=== PATIENT | male | born 1960 | race Caucasian/White ===

== ENCOUNTER 2016-11-02 14:14 | Inpatient (IN) | payer OTHER ==
[~2016-11-02] VITALS: Ht 182.9 cm; Wt 80.7 kg
[~2016-11-02 14:14] MED LIST: AMITRIPTYLINE H25 MG PO; NAPROXEN500 MG PO; SIMVASTATIN20 MG PO
[2016-11-02 15:00] LABS: ABSOLUTE BASOPHIL COUNT 0 /CUMM (0.0-0.2); ABSOLUTE EOSINOPHIL COUNT 0.4 /CUMM (0.0-0.7); ABSOLUTE LYMPH COUNT 1.6 /CUMM (1.2-3.4); ABSOLUTE MONOCYTE COUNT 0.2 /CUMM (0.10-0.60); BASOPHIL % 0.4 % (0.0-2.0); GRANULOCYTE % 81.9 % (42.2-75.2); HEMATOCRIT 40.9 % (42-52); MEAN CORPUSCULAR HGB 29.7 PG (27.0-31.0); MEAN CORPUSCULAR HGB CONC 32.9 G/DL (33.0-37.0); MEAN CORPUSCULAR VOLUME 90.3 FL (80.0-94.0); PLATELET COUNT 384 /CUMM (130-400); RBC DISTRIBUTION WIDTH 13.7 % (11.5-14.5); RED BLOOD CELL CT 4.53 /CUMM (4.70-6.10); WHITE BLOOD CELL COUNT 12.2 /CUMM (4.8-10.8)
[2016-11-02] MEDS ORDERED: HYDROXYCHLOROQ200 M2 PO (19:37)
[2016-11-02] MEDS ORDERED: OMEPRAZOLE20 M2 PO (19:37)
[2016-11-02] MEDS ORDERED: AMITRIPTYLINE H25 M2 PO (19:37)
[2016-11-02] MEDS ORDERED: ALLOPURINOL300 M1 PO (19:37)
[2016-11-02] MEDS ORDERED: DICLOFENAC SODI75 M2 PO (19:38)
[2016-11-02] MEDS ORDERED: CEPHALEXIN500 M3 PO (19:38)
[2016-11-02] MEDS ORDERED: TRAMADOL HCL50 M1 PO (19:38)
[2016-11-02] MEDS ORDERED: VIAGRA100 M1 PO (19:39)
[2016-11-02] MEDS ORDERED: ASPIRIN EC81 M1 PO (19:39)
[2016-11-02] MEDS ORDERED: SIMVASTATIN20 M2 PO (20:32)
--- NOTE | 2016-11-02 21:45 | ED HAND/WRIST INJURY COMPLAINT ---
History of Present Illness General Chief Complaint: General Adult Stated Complaint: SIB MD FOR STAPH INFECTION Source: patient Exam Limitations: no limitations Vital Signs & Intake/Output Vital Signs & Intake/Output Vital Signs Date Time Temp Pulse Resp B/P B/P Pulse O2 O2 Flow FiO2 Mean Ox Delivery Rate 11/02 2024 96.9 84 16 130/78 99 Room Air 11/02 1737 97.8 79 16 109/70 93 Room Air 11/02 1423 96.6 80 16 107/71 97 Room Air Allergies Coded Allergies: NO KNOWN ALLERGIES (10/17/13) Reconcile Medications Allopurinol 300 MG TABLET 1 TAB PO DAILY GOUT (Reported) Amitriptyline HCl 25 MG TABLET 1 TAB PO QPM YUSUF (Reported) Aspirin (Ecotrin*) 81 MG TABLET.DR 1 TAB PO DAILY HEART/BLOOD (Reported) Diclofenac Sodium 75 MG TABLET.DR 1 TAB PO BID INFLAMMATION (Reported) Hydroxychloroquine Sulfate 200 MG TABLET 1 TAB PO DAILY RA (Reported) Sildenafil Citrate (Viagra) 100 MG TABLET 1 TAB PO PRN ED (Reported) 1 hour before sexual activity Simvastatin (Simvastatin*) 20 MG TABLET 1 TAB PO DAILY CHOLESTEROL (Reported) Tramadol HCl 50 MG TABLET 1 TAB PO PRN PAIN (Reported) Triage Note: PT STATES HE HAS A STAPH INFECTION IN HIS RIGHT ARM. PT STATES SENT IN BY PCP FOR IV ABX. Triage Nurses Notes Reviewed? yes HPI: Mr. Jose is a 56 yo m w/ PMH of RA, gout and CAD w/ stent in place sending to the emergency department for right elbow pain and swelling. Patient states his pain began approximately one week ago. It continued to worsen and became inflamed with increased swelling. Patient went to his yard associate on October 31 and had an aspiration performed. After speaking with the patient's covering yard associate, the procedure note in the office stated that he drained the olecranon with aseptic technique. He was concerned about olecranon bursitis and sent the patient out on Keflex. The patient received a call today telling him to go to the emergency department as his culture from the elbow grew staph. Unable to confirm this as the patient's results was done with Envia Lá and office was closed. Patient denies fever, chills, chest pain, shortness of breath, no pain, nausea, vomiting or diarrhea. He endorses swelling to the right elbow as well as decreased range of motion secondary to pain. He also noticed some superficial redness that has been increasing over the past few days to the entire forearm. (ALBERTO SPARROW MD) Past History Travel History Traveled to [place] past 21 day No Medical History Any Pertinent Medical History? see below for history Neurological: NONE EENT: NONE Cardiovascular: STENT IN HEART Respiratory: NONE Renal: GOUT Musculoskeletal: rheumatoid arthritis Surgical History Surgical History: non-contributory Psychosocial History What is your primary language Bangladeshi Tobacco Use: Never used ETOH Use: occasional use Illicit Drug Use: marijuana Family History Hx Contributory? No (ALBERTO SPARROW MD) Review of Systems Review of Systems Constitutional: Reports: see HPI. EENTM: Reports: no symptoms. Respiratory: Reports: no symptoms. Cardiovascular: Reports: no symptoms. GI: Reports: no symptoms. Genitourinary: Reports: no symptoms. Musculoskeletal: Reports: joint pain, joint swelling. Skin: Reports: erythema. Neurological/Psychological: Reports: no symptoms. Hematologic/Endocrine: Reports: no symptoms. Immunologic/Allergic: Reports: no symptoms. All Other Systems: Reviewed and Negative (ALBERTO SPARROW MD) Physical Exam Physical Exam General Appearance: well developed/nourished, no apparent distress, alert, awake , comfortable Head: atraumatic, normal appearance Eyes: Bilateral: normal appearance, PERRL, EOMI. Ears, Nose, Throat: normal pharynx, normal ENT inspection, hearing grossly normal Neck: normal inspection, supple, full range of motion Cardiovascular/Respiratory: normal breath sounds, normal peripheral pulses, regular rate/rhythm Gastrointestinal: soft nontender Back: normal inspection, normal range of motion Shoulder Right: normal range of motion, normal inspection Elbow Right: swelling, joint effusion, limited range of motion, superficial erythema from wrist to slightly above the elbow. No induration to skin noted. Swelling to olecranon bursa. Hand Left: normal inspection, normal range of motion Hand Right: normal inspection, normal range of motion Skin: warm/dry, erythema to right forearm and right above the elbow. Outlined in skin marker Lymphatic: no anterior cervical wayne (ALBERTO SPARROW MD) Progress Differential Diagnosis: abscess, cellulitis, fracture, gout, septic arthritis, tenosynovitis, olecranon bursitis Plan of Care: Orders Procedure Date/time Status Regular Diet 11/03 B Active EXTREMETIES CULTURE 11/02 2217 Active Admit to inpatient 11/03 2127 Active Patient Data 11/03 2127 Active OXYGEN SETUP (GEN) 11/03 1935 Active Saline Lock 11/03 1935 Active Admit to inpatient 11/03 1935 Active Vital Signs 11/03 1935 Active Activity/Ambulation 11/03 1935 Active Code Status 11/03 1935 Active LACTIC ACID 11/02 190 Complete WESTERGREN SED RATE 11/02 190 Complete Intake & Output 11/02 190 Active HIGH SENSITIVITY CRP 11/02 1443 Complete C-REACTIVE PROTEIN 11/02 1443 Complete BLOOD CULTURE 11/02 142 Active COMPREHENSIVE METABOLIC PANEL 11/02 142 Complete CBC WITHOUT DIFFERENTIAL 11/02 142 Complete Current Medications Sig/Gregg Start time Last Medication Dose Stop Time Status Admin Oxycodone HCl 10 MG ONCE ONE 11/02 2229 UNVr (Roxicodone) 11/02 2230 Ceftriaxone Sodium 2,000 MG DAILY 11/02 1905 AC 11/02 (Rocephin) 194 Laboratory Tests 11/02/162205: Lactic Acid Cancelled 11/02/161910: Lactic Acid 1.1, ESR Westergren 92 H 11/02/16 1443: Anion Gap 13, Estimated GFR > 60, BUN/Creatinine Ratio 25.7 H, Glucose 90, Calcium 8.7, Total Bilirubin 0.5, AST 30, ALT 69, Alkaline Phosphatase 92, C- Reactive Prot, Quant > 9.0 H, C-React Prot High Sens > 15.0 H, Total Protein 6.2 L, Albumin 3.4 L, Globulin 2.8, Albumin/Globulin Ratio 1.2, CBC w Diff NO MAN DIFF REQ, RBC 4.53 L, MCV 90.3, MCH 29.7, RDW 13.7, MPV 8.0, Gran % 81.9 H , Lymphocytes % 13.0 L, Monocytes % 1.7, Eosinophils % 3.0, Basophils % 0.4, Absolute Granulocytes 10.0 H, Absolute Lymphocytes 1.6, Absolute Monocytes 0.2, Absolute Eosinophils 0.4, Absolute Basophils 0, PUBS MCHC 32.9 L Microbiology 11/02 2217 EXTREMITIE: Culture & Sensitivity - ORD 11/02 2217 EXTREMITIE: Gram Stain - ORD 11/03 2211 BODY FLUID: Body Fluid Culture - CAN Cancelled: Cancelled via OE: Error 11/02 2212 BODY FLUID: Gram Stain - CAN Cancelled: Cancelled via OE: Error 11/02 1443 BLOOD: Blood Culture - RECD 11/02 1433 BLOOD: Blood Culture - RECD D6-year-old male with known R a gout presenting for right elbow swelling and pain. She was told by his doctor (yard associate) that this was positive for staph. Patient also has overlying erythema and cellulitis. Concern for olecranon bursitis versus septic arthritis. Attempted to call the covering provider for the patient's yard associate. The screening unit registered nurse called for approximately 4.5 hours without any call backs. After discussion with on-call doctor, they were able to access the notes from the office and the physician's notes stated that he obtained the sample from the patient's olecranon bursa and it was done with aseptic technique. Spoke to orthopedics (Dr. Hoyt) about possible or washout. Blood culture sent. It later became clear that this is most likely olecranon bursitis per the outpatient yard associate's note, less likely septic arthritis. Patient does have elevated leukocytosis with a left shift. Patient also has an elevated sedimentation rate and CRP. Patient also has surrounding cellulitis. evaluated the patient emergency department. He did a small incision to the right lateral elbow draining several cc of thick pus like material. This was sent to the lab for culture. Patient was started on broad-spectrum antibiotics including ceftriaxone 2 g and vancomycin 1 g IV push. Patient requested medication for pain. Will order oxycodone 10 mg by mouth. (ANDREWS ZEPEDA,[facility]) Departure Departure Time of Disposition: 2141 Disposition: STILL A PATIENT Condition: Stable Clinical Impression Primary Impression: Olecranon bursitis Qualifiers: Laterality: right Qualified Code: M70.21 - Olecranon bursitis, right elbow Referrals: LULU PENA MD (PCP/Family) Departure Forms: Customer Survey General Discharge Information Admission Note Spoke With: JAMIN NELSON DO Documentation of Exam: Documentation of any treatments & extenuating circumstances including Concerns Regarding Discharge (functional status, medication knowledge or non-compliance, living conditions, etc.) that warrant an admission rather than observation: Patient requires inpatient admission for IV antibiotics for olecranon bursitis, possible septic joint. If the patient were discharged, we increase the risk of possible bacteremia and sepsis and increase his morbidity and mortality. Patient will also require consultation by orthopedics. Should the patient not improve, he will need to be taken to the OR for a washout of the right elbow. (ANDREWS ZEPEDA,ALBERTO) Resident Co-Sign Statement Statement: ED Attending supervision documentation- x I saw and evaluated the patient. I have also reviewed all the pertinent lab results and diagnostic results. I agree with the findings and the plan of care as documented in the Resident's documentation. [] I have reviewed the ED Record and agree with the Resident's documentation. [] Additions or exceptions (if any) to the Resident's note and plan are summarized below: [] (ALTAGRACIA ZEPEDA,ALIZA)
--- NOTE | 2016-11-02 21:58 | Cons- Orthopedic ---
General Information and HPI Consulting Request Date of Consult: 11/02/16 Requested By: CARLOS MANUEL GAONA M.D Reason for Consult: Infected right elbow olecranon bursitis Source of Information: patient History of Present Illness: Patient is a 56-year-old [id number] male who was seen by his human capital consultant earlier in the week and had his olecranon bursitis drained. This was sent for culture apparently by the human capital consultant. He was called by the human capital consultant this afternoon and instructed to go to the emergency room. He's had pain and swelling and erythema about the elbow for several days now. He was on oral antibiotics at home for a couple days which he said did not help at all. He denies any significant fever or chills. Allergies/Medications Allergies: Coded Allergies: NO KNOWN ALLERGIES (10/17/13) Home Med List: Allopurinol 300 MG TABLET 1 TAB PO DAILY GOUT (Reported) Amitriptyline HCl 25 MG TABLET 1 TAB PO QPM YUSUF (Reported) Aspirin (Ecotrin*) 81 MG TABLET.DR 1 TAB PO DAILY HEART/BLOOD (Reported) Diclofenac Sodium 75 MG TABLET.DR 1 TAB PO BID INFLAMMATION (Reported) Hydroxychloroquine Sulfate 200 MG TABLET 1 TAB PO DAILY RA (Reported) Sildenafil Citrate (Viagra) 100 MG TABLET 1 TAB PO PRN ED (Reported) 1 hour before sexual activity Simvastatin (Simvastatin*) 20 MG TABLET 1 TAB PO DAILY CHOLESTEROL (Reported) Tramadol HCl 50 MG TABLET 1 TAB PO PRN PAIN (Reported) Current Medications: Current Medications Sig/Gregg Start time Last Medication Dose Route Stop Time Status Admin Ceftriaxone Sodium 0 .STK-MED ONE 11/02 1945 DC .ROUTE Ceftriaxone Sodium 2,000 MG DAILY 11/02 1905 AC 11/02 IV 1948 Lidocaine 0 .STK-MED ONE 11/03 2143 DC .ROUTE Sodium Chloride 1,000 ML BOLUS ONE 11/02 1914 DC 11/02 IV 11/02 Vancomycin HCl 1,000 MG ONCE ONE 11/02 1944 DC 11/02 Sodium Chloride 250 ML IV 11/02 Vancomycin HCl 0 .STK-MED ONE 11/02 1944 DC .ROUTE Past History Medical History Blood Transfusion Hx: No Neurological: NONE EENT: NONE Cardiovascular: STENT IN HEART Respiratory: NONE Renal: GOUT Musculoskeletal: rheumatoid arthritis Surgical History Pertinent Surgical History: non-contributory Psychosocial History ETOH Use: occasional use Illicit Drug Use: marijuana Exam & Diagnostic Data Vital Signs and I&O Vital Signs Date Time Temp Pulse Resp B/P B/P Pulse O2 O2 Flow FiO2 Mean Ox Delivery Rate 11/02 2024 96.9 84 16 130/78 99 Room Air 11/02 1737 97.8 79 16 109/70 93 Room Air 11/02 1423 96.6 80 16 107/71 97 Room Air Intake & Output 11/02 1600 11/02 0800 11/02 0000 11/01 1600 11/01 0800 11/01 0000 Intake Total Output Total Balance Patient 175 lb Weight Weight Reported by Patient Measurement Method On physical exam the patient is well-developed well-nourished male in no acute distress. He is alert and oriented to person place and time. Head and neck exam is normal. Lungs are clear bilaterally. Cardiovascular exam reveals S1 and S2. Abdomen is soft nontender nondistended. Extremity exam reveals right upper extremity with erythema from the mid arm to the mid forearm with minimal fluid collection in the olecranon bursa. Range of motion of the elbow is painless. Range of motion elbow is full. The right upper extremity is grossly neurovascularly intact. The remainder of his extremity exam is within normal limits. Assessment/Plan Assessment/Plan 56-year-old male with infected olecranon bursitis. Plan: Bedside irrigation and incision and drainage of the infected bursa with packing of the bursa with iodoform packing. The patient should be admitted to the medical service for IV antibiotics. We'll continue to monitor the patient's progress on IV antibiotics. Consult Acknowledgment - Thank you for your consult request.
[2016-11-02 22:41] VITALS: BP 122/72
--- NOTE | 2016-11-03 00:09 | History & Physical ---
General Information and HPI MD Statement: I have seen and personally examined ROB JOHNSON and documented this H&P. The patient is a 56 year old M who presented with a patient stated chief complaint of [right elbow pain and concern for septic arthritis. The patient states that he's had pain to the right elbow for the past 2 weeks. He was seen and evaluated by land lease information clerk earlier today and had the elbow tapped and was contacted and informed that it grew out bacteria. He was told to go to the emergency department for admission. Presently he is been seen and evaluated by the orthopedist in the emergency department and the wound was opened and is currently felt to be septic bursitis of the right elbow the patient is receiving IV antibiotics]. Source of Information: patient Exam Limitations: no limitations History of Present Illness: 2 weeks of right elbow pain. Status post aspiration by land lease information clerk. Status post evaluation by the orthopedist in the Emergency Department. Allergies/Medications Allergies: Coded Allergies: NO KNOWN ALLERGIES (10/17/13) Home Med list Allopurinol 300 MG TABLET 1 TAB PO DAILY GOUT (Reported) Amitriptyline HCl 25 MG TABLET 1 TAB PO QPM YUSUF (Reported) Aspirin (Ecotrin*) 81 MG TABLET.DR 1 TAB PO DAILY HEART/BLOOD (Reported) Diclofenac Sodium 75 MG TABLET.DR 1 TAB PO BID INFLAMMATION (Reported) Hydroxychloroquine Sulfate 200 MG TABLET 1 TAB PO DAILY RA (Reported) Sildenafil Citrate (Viagra) 100 MG TABLET 1 TAB PO PRN ED (Reported) 1 hour before sexual activity Simvastatin (Simvastatin*) 20 MG TABLET 1 TAB PO DAILY CHOLESTEROL (Reported) Tramadol HCl 50 MG TABLET 1 TAB PO PRN PAIN (Reported) Past History Travel History Traveled to [place] past 21 day No Medical History Blood Transfusion Hx: No Neurological: NONE EENT: NONE Cardiovascular: STENT IN HEART Respiratory: NONE Gastrointestinal: NONE Hepatic: NONE Renal: GOUT Musculoskeletal: rheumatoid arthritis Psychiatric: NONE Endocrine: NONE Blood Disorders: NONE Cancer(s): NONE 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 Psychosocial History Where do you live? Home Services at Home: None Smoking Status: Former Smoker ETOH Use: occasional use Illicit Drug Use: marijuana Review of Systems Review of Systems Constitutional: Reports: fever. EENTM: Reports: no symptoms. Cardiovascular: Reports: no symptoms. Respiratory: Reports: no symptoms. GI: Reports: no symptoms. Genitourinary: Reports: no symptoms. Musculoskeletal: Reports: see HPI. Skin: Reports: see HPI. Neurological/Psychological: Reports: no symptoms. Hematologic/Endocrine: Reports: no symptoms. Immunologic/Allergic: Reports: no symptoms. All Other Systems: Reviewed and Negative Exam & Diagnostic Data Last 24 Hrs of Vital Signs/I&O Vital Signs Date Time Temp Pulse Resp B/P B/P Pulse O2 O2 Flow FiO2 Mean Ox Delivery Rate 11/02 2241 98.0 93 19 122/72 98 Room Air 11/02 2025 96.9 84 16 130/78 99 Room Air 11/02 1737 97.8 79 16 109/70 93 Room Air 11/02 1423 96.6 80 16 107/71 97 Room Air Intake & Output 11/03 0800 11/03 0000 11/02 1600 Intake Total Output Total Balance Patient 178 lb 175 lb Weight Weight Reported by Patient Reported by Patient Measurement Method Physical Exam General Appearance Alert, Oriented X3, Cooperative Skin ERYTHERMA, RIGHT ELBOW, CURRENTLY IN DRESSING Skin Temp/Moisture Exam: Warm/Dry Sepsis Skin Exam (color): Normal for Ethnicity HEENT Atraumatic Neck Supple Cardiovascular Regular Rate Lungs Normal Air Movement Neurological Normal Speech, Cranial Nerves 3-12 NL Extremities TENDERNESS RIGHT ELBOW Assessment/Plan Assessment: Septic bursitis The patient is being admitted for IV antibiotics and orthopedic consultation As Ranked By This Provider Problem List: 1. Septic olecranon bursitis of right elbow Core Measures/Miscellaneous Acute Coronary Syndrome ACS Diagnosis: No Cerebrovascular Accident CVA/TIA Diagnosis: No Congestive Heart Failure CHF Diagnosis: No Venous Thromboembolism VTE Risk Factors: Acute medical illness No [facility] VTE prophylaxis d/t: No contraindications No VTE Pharm Prophylaxis d/t: No contraindications VTE Diagnosis: No VTE Type: NONE VTE Confirmed by (Test): NONE Severe Sepsis Severe Sepsis Present: No Septic Shock Septic Shock Present: No Miscellaneous Documentation Attending Case Discussed With: CARLOS MANUEL GAONA M.D Primary Care Physician: BECKY ZEPEDA,[facility] Patient sees these Specialists Level of Patient Care: General Medicine Resident Review Statement Resident Statement: examined this patient Attending MD Review Statement Attending Statement Attending MD Statement: examined this patient
[2016-11-03 06:13] VITALS: BP 98/64
[2016-11-03 07:58] LABS: ABSOLUTE BASOPHIL COUNT 0.1 /CUMM (0.0-0.2); ABSOLUTE EOSINOPHIL COUNT 0.4 /CUMM (0.0-0.7); ABSOLUTE GRANULOCYTE CT 6.1 /CUMM (1.4-6.5); ABSOLUTE MONOCYTE COUNT 0.9 /CUMM (0.10-0.60); BASOPHIL % 0.6 % (0.0-2.0); EOSINOPHIL % 4.5 % (0-5); GRANULOCYTE % 64.6 % (42.2-75.2); HEMATOCRIT 38.1 % (42-52); MEAN CORPUSCULAR HGB CONC 33.3 G/DL (33.0-37.0); MEAN CORPUSCULAR VOLUME 90.3 FL (80.0-94.0); MEAN PLATELET VOLUME 8.4 FL (7.4-10.4); PLATELET COUNT 360 /CUMM (130-400); RBC DISTRIBUTION WIDTH 13.3 % (11.5-14.5); RED BLOOD CELL CT 4.22 /CUMM (4.70-6.10); WHITE BLOOD CELL COUNT 9.4 /CUMM (4.8-10.8)
--- NOTE | 2016-11-03 10:40 | Event Note ---
Event Note Event Note: 56-year-old male with past medical history of coronary artery disease status post stent, rheumatoid arthritis, gout, hyperlipidemia, was referred to the emergency department by his adoption agent after getting results positive for aspirate from his right olecranon bursa. Currently he is being managed in the general medicine floor for the following issues: #Septic bursitis, right olecranon bursa, s/p I&D on 10/24/16 Patient had visited adoption agent Dr Garland Red ([phone]) on Sunday for painful right elbow, underwent aspiration, and was sent home with oral Keflex and anti-inflammatory drugs. The results came back positive for group C streptococcus, predictably susceptible to penicillin and other beta lactams antibiotics on and was referred to the emergency department. -Continue IV antibiotics, infectious disease service consultation regarding choice of antibiotics -Follow up final blood cultures -Continue pain medications, which seem to be adequate currently #Continue rest of his home medication #Heart healthy diet #Code status: Full code
--- NOTE | 2016-11-03 12:45 | PN- Att Addend ---
Attending Addendum Attending Brief Note Patient seen and examined. Resting comfortably and not in any acute distress. Patient reports history of gout attacks on and off in the past. He reports recent swelling of his right elbow for about a week with no improvement after which he follow-up with his sports media. Right elbow bursitis was drained and he was started on oral antibiotic therapy. He was called 2 days afterwards report of positive cultures and was sent to the emergency room for evaluation yesterday. He is status post incision and drainage by the orthopedic service in the emergency room yesterday. Vital Signs Date Time Temp Pulse Resp B/P B/P Pulse O2 O2 Flow FiO2 Mean Ox Delivery Rate 11/03 612 97.6 84 20 98/64 96 Room Air 11/02 2241 98.0 93 19 122/72 98 Room Air 11/02 2025 96.9 84 16 130/78 99 Room Air 11/02 1737 97.8 79 16 109/70 93 Room Air 11/02 1423 96.6 80 16 107/71 97 Room Air Gen. appearance: Well-developed, not in any acute distress Heart: S1-S2 regular Lungs: Clear bilaterally Abdomen: Soft and nontender with normal bowel sounds Lower extremities: No pedal edema Right upper extremity surgical dressing. Breath. Radial pulse palpable. Normal range of motion of the fingers. No erythema of the visible forearm and upper arm. Laboratory Tests 11/03/16 0610: Anion Gap 10, Estimated GFR > 60, BUN/Creatinine Ratio 21.3, CBC w Diff NO MAN DIFF REQ, RBC 4.22 L, MCV 90.3, MCH 30.0, RDW 13.3, MPV 8.4, Gran % 64.6, Lymphocytes % 21.2, Monocytes % 9.1, Eosinophils % 4.5, Basophils % 0.6, Absolute Granulocytes 6.1, Absolute Lymphocytes 2.0, Absolute Monocytes 0.9 H, Absolute Eosinophils 0.4, Absolute Basophils 0.1, PUBS MCHC 33.3 11/02/166: Lactic Acid Cancelled 11/02/16 1911: Lactic Acid 1.1, ESR Westergren 92 H 11/02/16 1443: Anion Gap 13, Estimated GFR > 60, BUN/Creatinine Ratio 25.7 H, Glucose 90, Calcium 8.7, Total Bilirubin 0.5, AST 30, ALT 69, Alkaline Phosphatase 92, C- Reactive Prot, Quant > 9.0 H, C-React Prot High Sens > 15.0 H, Total Protein 6.2 L, Albumin 3.4 L, Globulin 2.8, Albumin/Globulin Ratio 1.2, CBC w Diff NO MAN DIFF REQ, RBC 4.53 L, MCV 90.3, MCH 29.7, RDW 13.7, MPV 8.0, Gran % 81.9 H , Lymphocytes % 13.0 L, Monocytes % 1.7, Eosinophils % 3.0, Basophils % 0.4, Absolute Granulocytes 10.0 H, Absolute Lymphocytes 1.6, Absolute Monocytes 0.2, Absolute Eosinophils 0.4, Absolute Basophils 0, PUBS MCHC 32.9 L Microbiology 11/03 2219 EXTREMITIE: Culture & Sensitivity - RES 11/03 2219 EXTREMITIE: Gram Stain - RES 11/03 2211 BODY FLUID: Body Fluid Culture - CAN Cancelled: Cancelled via OE: Error 11/02 221 BODY FLUID: Gram Stain - CAN Cancelled: Cancelled via OE: Error 11/02 1443 BLOOD: Blood Culture - RES 11/02 1433 BLOOD: Blood Culture - RES Problems: 1. Right upper extremity infected olecranon bursitis; status post incision and drainage Plan: -Follow-up culture results here at [facility] and does done by his sports media as an outpatient. -Continue antibiotic therapy with IV vancomycin pending evaluation by the ID service. -Continue his home dose of diclofenac for pain control. Add Percocet to regimen for added pain control as needed. -If no further imaging or surgical intervention is recommended by the orthopedics service or the ID service over the weekend he may be transitioned to oral antibiotics
[2016-11-03 14:22] VITALS: BP 110/68
--- NOTE | 2016-11-03 16:28 | Cons- Infect Disease ---
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 On admission he was afebrile. Laboratory data revealed a white blood cell count of 12,000, BUN/ creatinine 18 and 0.7, with normal liver enzymes. He was evaluated by Orthopedics, with an I&D of his right olecranon bursa performed at the bedside. He was given a dose of Ceftriaxone and then placed on Vancomycin. He has remained afebrile overnight. He feels improved today with decreased pain, erythema and edema. Apparently his outpatient culture has been identified as Group C strep. Allergies/Medications Allergies: Coded Allergies: NO KNOWN ALLERGIES (10/17/13) Home Med List: Allopurinol 300 MG TABLET 1 TAB PO DAILY GOUT (Reported) Amitriptyline HCl 25 MG TABLET 1 TAB PO QPM YUSUF (Reported) Aspirin (Ecotrin*) 81 MG TABLET.DR 1 TAB PO DAILY HEART/BLOOD (Reported) Diclofenac Sodium 75 MG TABLET.DR 1 TAB PO BID INFLAMMATION (Reported) Hydroxychloroquine Sulfate 200 MG TABLET 1 TAB PO DAILY RA (Reported) Sildenafil Citrate (Viagra) 100 MG TABLET 1 TAB PO PRN ED (Reported) 1 hour before sexual activity Simvastatin (Simvastatin*) 20 MG TABLET 1 TAB PO DAILY CHOLESTEROL (Reported) Tramadol HCl 50 MG TABLET 1 TAB PO PRN PAIN (Reported) Past History Travel History Traveled to [place] past 21 day No Medical History Blood Transfusion Hx: No Neurological: NONE EENT: NONE Cardiovascular: CAD (s/p stent) Respiratory: NONE Gastrointestinal: NONE Hepatic: NONE Musculoskeletal: gout, rheumatoid arthritis Psychiatric: NONE Endocrine: NONE Blood Disorders: NONE Cancer(s): NONE 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 Home Services at Home: None Smoking Status: Former Smoker ETOH Use: occasional use Illicit Drug Use: marijuana Review of Systems Review of Systems All Other Systems: Reviewed and Negative Exam & Diagnostic Data Last 24 Hrs of Vital Signs/I&O Vital Signs Date Time Temp Pulse Resp B/P B/P Pulse O2 O2 Flow FiO2 Mean Ox Delivery Rate 11/03 1422 98.3 88 20 110/68 97 Room Air 11/03 0613 97.6 84 20 98/64 96 Room Air 11/02 2241 98.0 93 19 122/72 98 Room Air 11/02 2025 96.9 84 16 130/78 99 Room Air 11/02 1737 97.8 79 16 109/70 93 Room Air Intake & Output 11/03 1600 11/03 0800 11/03 0000 Intake Total Output Total 300 Balance -300 Output, Urine 300 Patient 178 lb Weight Weight Reported by Patient Measurement Method Physical Exam Other Physical Findings: He is awake and alert in no acute distress. He is afebrile. Skin reveals no rash. HEENT exam is negative. Neck is supple with no adenopathy. Lungs are clear. Heart regular rhythm with no murmur. Abdomen is soft, nontender with positive bowel sounds. Back no CVA tenderness. Extremities right elbow wound with packing in place, with erythema towards the forearm, minimally tender to palpation, with full range of motion of the right elbow. Neuro is without focality. Last 24 Hours of Lab Results: Laboratory Tests 11/03 11/02 11/02 0610 2206 1911 Chemistry Sodium (137 - 145 mmol/L) 140 Potassium (3.5 - 5.1 mmol/L) 4.6 Chloride (98 - 107 mmol/L) 107 Carbon Dioxide (22 - 30 mmol/L) 23 Anion Gap (5 - 16) 10 BUN (9 - 20 mg/dL) 17 Creatinine (0.7 - 1.2 mg/dL) 0.8 Estimated GFR (>60 ml/min) > 60 BUN/Creatinine Ratio (7 - 25 %) 21.3 Lactic Acid (0.7 - 2.1 mmol/L) Cancelled 1.1 Hematology CBC w Diff NO MAN DIFF REQ WBC (4.8 - 10.8 /CUMM) 9.4 RBC (4.70 - 6.10 /CUMM) 4.22 L Hgb (14.0 - 18.0 G/DL) 12.7 L Hct (42 - 52 %) 38.1 L MCV (80.0 - 94.0 FL) 90.3 MCH (27.0 - 31.0 PG) 30.0 RDW (11.5 - 14.5 %) 13.3 Plt Count (130 - 400 /CUMM) 360 MPV (7.4 - 10.4 FL) 8.4 Gran % (42.2 - 75.2 %) 64.6 Lymphocytes % (20.5 - 51.1 %) 21.2 Monocytes % (1.7 - 9.3 %) 9.1 Eosinophils % (0 - 5 %) 4.5 Basophils % (0.0 - 2.0 %) 0.6 Absolute Granulocytes (1.4 - 6.5 /CUMM) 6.1 Absolute Lymphocytes (1.2 - 3.4 /CUMM) 2.0 Absolute Monocytes (0.10 - 0.60 /CUMM) 0.9 H Absolute Eosinophils (0.0 - 0.7 /CUMM) 0.4 Absolute Basophils (0.0 - 0.2 /CUMM) 0.1 PUBS MCHC (33.0 - 37.0 G/DL) 33.3 ESR Westergren (0 - 10 MM) 92 H Last 24 Hours of Mumtaz Results: Blood cultures 2 November 02 negative Right olecranon bursa culture November 02 no growth, with gram stain revealing few white blood cells and rare gram-positive cocci Outpatient olecranon bursa culture reportedly positive for Group C strep Assessment/Plan Assessment/Plan Impression: This is a 56-year-old man with a history of rheumatoid arthritis and gout admitted on November 02 with increasing right elbow swelling, pain and erythema after an outpatient aspiration of the olecranon bursa was found to be positive for gram-positive cocci, found to be afebrile with a mild leukocytosis, now status post an I&D of the olecranon bursa at the bedside. The outpatient culture was reportedly positive for Group C strep; therefore his antibiotics can be adjusted to cover this organism. He will require a 2-3 week course of antibiotics, but this can be completed with oral antibiotics once he has clearly improved. Suggestion: 1. Follow-up final cultures 2. Discontinue Vancomycin 3. Begin Ampicillin 2 g IV every 6 hours, with eventual change to Amoxicillin 500 mg po every 8 hours if continues to improve Consult Acknowledgment - Thank you for your consult request.
[2016-11-03 22:22] VITALS: BP 108/60
[2016-11-04 06:34] VITALS: BP 128/84
[2016-11-04 08:22] LABS: ABSOLUTE BASOPHIL COUNT 0 /CUMM (0.0-0.2); ABSOLUTE EOSINOPHIL COUNT 0.4 /CUMM (0.0-0.7); ABSOLUTE GRANULOCYTE CT 3.9 /CUMM (1.4-6.5); ABSOLUTE LYMPH COUNT 2.3 /CUMM (1.2-3.4); ABSOLUTE MONOCYTE COUNT 0.7 /CUMM (0.10-0.60); BASOPHIL % 0.5 % (0.0-2.0); EOSINOPHIL % 5.9 % (0-5); GRANULOCYTE % 52.9 % (42.2-75.2); HEMATOCRIT 41.2 % (42-52); MEAN CORPUSCULAR HGB 29.9 PG (27.0-31.0); MEAN CORPUSCULAR HGB CONC 33.2 G/DL (33.0-37.0); MEAN CORPUSCULAR VOLUME 90.1 FL (80.0-94.0); MEAN PLATELET VOLUME 8.1 FL (7.4-10.4); PLATELET COUNT 382 /CUMM (130-400); RBC DISTRIBUTION WIDTH 13.6 % (11.5-14.5); RED BLOOD CELL CT 4.57 /CUMM (4.70-6.10); WHITE BLOOD CELL COUNT 7.3 /CUMM (4.8-10.8)
--- NOTE | 2016-11-04 08:36 | PN- Housestaff ---
DEYSI ZEPEDA,CHRISS 11/04/16 0835: Subjective Follow-up For: Right Septic Olecranian bursitis Subjective: I saw and examined the patient today morning Review of Systems Constitutional: Reports: see HPI. Comments: ROS negative except the above. Objective Last 24 Hrs of Vital Signs/I&O Vital Signs Date Time Temp Pulse Resp B/P B/P Pulse O2 O2 Flow FiO2 Mean Ox Delivery Rate 11/04 0634 97.6 76 20 128/84 97 11/03 2222 98.2 85 18 108/60 96 Room Air 11/03 1422 98.3 88 20 110/68 97 Room Air Intake & Output 11/04 1600 11/04 0800 11/04 0000 Intake Total 120 340 Output Total Balance 120 340 Intake, Oral 120 340 Physical Exam General Appearance: Alert, Oriented X3, Cooperative, No Acute Distress Skin: No Rashes, No Breakdown, chronic decubitus ulcers, rash in the left elbow region is healing well, dressing present in the bursa region Skin Temp/Moisture Exam: Warm/Dry HEENT: Atraumatic, PERRLA Neck: Supple Cardiovascular: Normal S1, Normal S2 Lungs: Clear to Auscultation, Normal Air Movement Abdomen: Normal Bowel Sounds, Soft, No Tenderness Neurological: Normal Speech, Strength at 5/5 X4 Ext, Normal Tone, Sensation Intact Current Medications: Current Medications Sig/Gregg Start time Last Medication Dose Route Stop Time Status Admin Acetaminophen 650 MG Q6P PRN 11/03 0100 AC PO Allopurinol 300 MG DAILY 11/03 1000 AC 11/03 PO 0918 Amitriptyline HCl 25 MG QPM 11/03 2200 AC 11/03 PO 214 Ampicillin 2,000 MG Q6 11/03 1800 CAN IV Ampicillin 2,000 MG Q6 11/03 1800 AC 11/04 Sodium Chloride 100 ML IV 0529 Aspirin Buffered 81 MG DAILY 11/03 1000 AC 11/03 PO 0918 Atorvastatin Calcium 10 MG 1700 11/03 1700 AC 11/03 PO 1748 Diclofenac Sodium 75 MG BID 11/03 0016 AC 11/03 PO 2143 Heparin Sodium 5,000 UNIT Q8 11/03 0600 AC (Porcine) SC Hydroxychloroquine 200 MG DAILY 11/03 1000 AC 11/03 Sulfate PO 0918 Oxycodone/ 1 TAB Q6P PRN 11/03 1500 AC 11/03 Acetaminophen PO 2142 Patient Medication 1 ED ONE ONE 11/03 1415 DC Teaching ED 11/03 1416 Vancomycin HCl 1,500 MG Q12 11/03 1000 DC 11/03 Sodium Chloride 250 ML IV 1026 Last 24 Hrs of Lab/Mumtaz Results Last 24 Hrs of Labs/Mics: Laboratory Tests 11/04/16 0700: Anion Gap 10, Estimated GFR > 60, BUN/Creatinine Ratio 21.4, CBC w Diff NO MAN DIFF REQ, RBC 4.57 L, MCV 90.1, MCH 29.9, RDW 13.6, MPV 8.1, Gran % 52.9, Lymphocytes % 31.3, Monocytes % 9.4 H, Eosinophils % 5.9 H, Basophils % 0.5, Absolute Granulocytes 3.9, Absolute Lymphocytes 2.3, Absolute Monocytes 0.7 H, Absolute Eosinophils 0.4, Absolute Basophils 0, PUBS MCHC 33.2 Assessment/Plan Assessment: 56-year-old male with past medical history of coronary artery disease status post stent, rheumatoid arthritis, gout, hyperlipidemia, was referred to the emergency department by his overnight babysitter after getting results positive for aspirate from his right olecranon bursa. Currently he is being managed in the general medicine floor for the following issues: Right olecranian septic bursitis - s/p I&D ( 10/24/16) Patient had visited overnight babysitter Dr Garland Red ([phone]) on Sunday for painful right elbow, underwent aspiration, and was sent home with oral Keflex and anti-inflammatory drugs. The results came back positive for group C streptococcus, predictably susceptible to penicillin and other beta lactams antibiotics on and was referred to the emergency department. * Switched to oral amoxicillin 500mg Q8 for a total of 14days - till november 16. * Discharged with 10pills of percocet and course of antibiotics. We cotinued his home medications at discharge. #Code status: Full code Problem List: 1. Olecranon bursitis 2. Septic olecranon bursitis of right elbow Pain Ratin Pain Location: right elbow Pain Goal: Pain 4 or less Pain Plan: percocet Tomorrow's Labs & Rationales: none IRENE ZEPEDA,WANDA 11/04/16 1436: Attending MD Review Statement Attending Statement Attending MD Statement: examined this patient, discuss w/resident/PA/WIRE TESTER, agreed w/resident/PA/WIRE TESTER, reviewed EMR data (avail), discussed with nursing Attending Assessment/Plan: Patient feels well. He spoke to Dr. Hoyt and is eager to go home. I noted Dr. Hoyt's note who changed his dressing and feels that orthopedically he is stable and will follow up with him on Sunday for dressing change. Also noted IDs note and I think we can comfortably switch him to by mouth antibiotics to complete his entire course for a septic bursitis that's group C strep related. I stressed importance of completing antibiotic course and following up with Dr. Hoyt. We'll give him the antibiotic prescription and 10 Percocet tablets ( prescription) to go home with.
--- NOTE | 2016-11-04 11:15 | PN- Orthopedic ---
Surgical Brief Attending Note Brief Attending Note: Patient seen this morning. He is postop day 2 status post I&D of infected right elbow olecranon bursitis. He is resting comfortably in his bed. The dressing was changed today. There is significantly less erythema and swelling about the elbow. There is been a significant response to the IV antibiotics as well as incision and drainage. The dressing and packing was removed and new packing was placed in the incision and a clean dressing was applied. The patient's right upper extremity is neurovascularly intact. The patient is stable from an orthopedic standpoint.. There is no further intervention orthopedically needed. He is to follow-up in my office on Sunday of this coming week for a dressing change. Office phone #[phone]
--- NOTE | 2016-11-04 11:29 | Patient Discharge Instructions ---
Discharge Instructions General Discharge Information You were seen/treated for: RIGHT OLECRANIAN SEPTIC BURSITIS Other wound care: Keep dressing in place, if it becomes wet - change outer dressing with a clean, dry DIONICIO bandage. Dr Hoyt will change the dressing in his office on 11/07 Special Instructions: Please follow up with your PCP in a week Please follow up with on 11/07/16 for dressing change please take your antibiotics regularly till november 16. Diet Continue normal diet: Yes Activity Full Activity/No Limits: Yes Activity Self Limited: Yes Acute Coronary Syndrome Inclusion Criteria At DC or during hospital stay patient has or had the following: ACS DIAGNOSIS No Discharge Core Measures Meds if any: Prescribed or Continued at Discharge Meds if any: NOT Prescribed or Continued at Discharge Congestive Heart Failure Inclusion Criteria At DC or during hospital stay patient has or had the following: CHF DIAGNOSIS No Discharge Core Measures Meds if any: Prescribed or Continued at Discharge Meds if any: NOT Prescribed or Continued at Discharge Cerebrovascular accident Inclusion Criteria At DC or during hospital stay patient has or had the following: CVA/TIA Diagnosis No Discharge Core Measures Meds if any: Prescribed or Continued at Discharge Meds if any: NOT Prescribed or Continued at Discharge Venous thromboembolism Inclusion Criteria VTE Diagnosis No VTE Type NONE VTE Confirmed by (Test) NONE Discharge Core Measures - Per Current guidelines, there needs to be overlap - treatment for the first 5 days of Warfarin therapy. - If discharged on Warfarin prior to 5 days of - overlap therapy, the patient will need to be - assessed for post discharge needs including - *Post discharge parental anticoagulation - *Warfarin and/or parental anticoagulation education - *Follow up date to check INR post discharge At least 5 days overlap therapy as Inpatient No Meds if any: Prescribed or Continued at Discharge Note: Overlap Therapy is Warfarin and Anticoagulant Meds if any: NOT Prescribed or Continued at Discharge
--- NOTE | 2016-11-04 14:33 | PN- Infect Dx ---
Subjective Subjective: Afebrile. He notes minimal discomfort in the right elbow area. Objective Last 24 Hrs of Vital Signs/I&O Vital Signs Date Time Temp Pulse Resp B/P B/P Pulse O2 O2 Flow FiO2 Mean Ox Delivery Rate 11/04 0634 97.6 76 20 128/84 97 11/03 2222 98.2 85 18 108/60 96 Room Air Intake & Output 11/04 1600 11/04 0800 11/04 0000 Intake Total 120 340 Output Total Balance 120 340 Intake, Oral 120 340 Physical Exam Other Physical Findings: He appears comfortable in no acute distress Extremities right elbow dressing intact Results Last 24 Hours of Lab Results: Laboratory Tests 11/04 0700 Chemistry Sodium (137 - 145 mmol/L) 139 Potassium (3.5 - 5.1 mmol/L) 4.4 Chloride (98 - 107 mmol/L) 106 Carbon Dioxide (22 - 30 mmol/L) 24 Anion Gap (5 - 16) 10 BUN (9 - 20 mg/dL) 15 Creatinine (0.7 - 1.2 mg/dL) 0.7 Estimated GFR (>60 ml/min) > 60 BUN/Creatinine Ratio (7 - 25 %) 21.4 Hematology CBC w Diff NO MAN DIFF REQ WBC (4.8 - 10.8 /CUMM) 7.3 RBC (4.70 - 6.10 /CUMM) 4.57 L Hgb (14.0 - 18.0 G/DL) 13.7 L Hct (42 - 52 %) 41.2 L MCV (80.0 - 94.0 FL) 90.1 MCH (27.0 - 31.0 PG) 29.9 RDW (11.5 - 14.5 %) 13.6 Plt Count (130 - 400 /CUMM) 382 MPV (7.4 - 10.4 FL) 8.1 Gran % (42.2 - 75.2 %) 52.9 Lymphocytes % (20.5 - 51.1 %) 31.3 Monocytes % (1.7 - 9.3 %) 9.4 H Eosinophils % (0 - 5 %) 5.9 H Basophils % (0.0 - 2.0 %) 0.5 Absolute Granulocytes (1.4 - 6.5 /CUMM) 3.9 Absolute Lymphocytes (1.2 - 3.4 /CUMM) 2.3 Absolute Monocytes (0.10 - 0.60 /CUMM) 0.7 H Absolute Eosinophils (0.0 - 0.7 /CUMM) 0.4 Absolute Basophils (0.0 - 0.2 /CUMM) 0 PUBS MCHC (33.0 - 37.0 G/DL) 33.2 Last 24 Hours of Mumtaz Results: Blood cultures November 02 negative Right elbow (olecranon bursa) culture November 02 positive for Group C strep Assessment/Plan Impression: Improving status post I&D of a right olecranon bursitis secondary to Group C strep 2 days ago, with temperatures remain normal and white blood cell count decreasing now on Ampicillin. Suggestion: 1. Continue Ampicillin, but if continues to improve can change to Amoxicillin 500 mg po every 8 hours to complete a two-week course of antibiotics from the I& D (until November 16)
[2016-11-04] MEDS ORDERED: AMOXICILLIN500 M2 PO (15:06)
[2016-11-04] MEDS ORDERED: PERCOCET 5-3251 EACH PO (15:14)
--- NOTE | 2016-11-05 21:38 | Discharge Summary ---
Visit Information Visit Dates Admission Date: 11/02/16 Discharge Date: 11/04/16 Hospital Course Course Attending Physician: CARLOS MANUEL GAONA M.D Primary Care Physician: BECKY ZEPEDA,[facility] B[facility] Hospital Course: 56-year-old male with past medical history of coronary artery disease status post stent, rheumatoid arthritis, gout, hyperlipidemia, was referred to the emergency department by his male model after getting results positive for aspirate from his right olecranon bursa. He was managed in the general medicine floor for the following issues: # Right olecranian septic bursitis - s/p I&D (10/24/16) Patient had visited male model Dr Garland Red ([phone]) on Sunday for painful right elbow, underwent aspiration, and was sent home with oral Keflex (antibiotic) and anti-inflammatory drugs. The results came back positive for group C Streptococcus, predictably susceptible to penicillin and other beta lactams antibiotics on and was referred to the emergency department. Culture from the extremity take at [facility] also grew the same. Patient was on Ampicillin, and upon discharge today, was switched to oral amoxicillin 500mg Q8 for a total of 14days - till november 16. His initial leukocytosis of 12.2 resolved to 7.3 today. He was discharged with 10pills of percocet for pain. Wound care as mentioned in the instructions and to follow up with Dr Freeman for dressing on . We continued rest of his home medications at discharge. Allergies: Coded Allergies: NO KNOWN ALLERGIES (10/17/13) Disposition Summary Disposition Principal Diagnosis: RIGHT OLECRANIAN SEPTIC BURSITIS Additional Diagnosis: Coronary artery disease status post stent, rheumatoid arthritis, gout, hyperlipidemia Discharge Disposition: home health services Discharge Instructions General Discharge Information Code Status: Full Code Patient's Diet: Heart healthy diet Patient's Activity: As tolerated. Follow-Up Instructions/Appts: Please follow up with your PCP in a week after discharge. Please follow up with on 11/07/16 for dressing change. Keep dressing in place, if it becomes wet - change outer dressing with a clean, dry DIONICIO bandage. Dr Hoyt will change the dressing in his office on 11/07. Please take your antibiotics regularly till November 16. Please return to emergency if symptoms worsen. Medications at Discharge Discharge Medications: Stop taking the following medications: Tramadol HCl (Tramadol HCl) 50 MG TABLET ORAL as needed for PAIN Qty = 30 Continue taking these medications: Allopurinol (Allopurinol) 300 MG TABLET 1 Tablet ORAL DAILY Qty = 90 Comments: Last Taken: 11/04/16 Time: 1000 AM Amitriptyline HCl (Amitriptyline HCl) 25 MG TABLET 1 Tablet ORAL Every night Qty = 90 Comments: Last Taken: 11/03/16 Time: 9:42 PM Hydroxychloroquine Sulfate (Hydroxychloroquine Sulfate) 200 MG TABLET 1 Tablet ORAL DAILY Qty = 180 Comments: Last Taken: 11/04/16 Time: 1000 AM Diclofenac Sodium (Diclofenac Sodium) 75 MG TABLET.DR 1 Tablet ORAL TWICE DAILY Qty = 60 Comments: Last Taken: 11/04/16 Time: 1000 AM Aspirin (Ecotrin*) 81 MG TABLET.DR 1 Tablet ORAL DAILY Comments: Last Taken: 11/04/16 Time: 1000 AM Sildenafil Citrate (Viagra) 100 MG TABLET 1 Tablet ORAL as needed for ED Qty = 6 Instructions: 1 hour before sexual activity Comments: NOT GIVEN IN HOSPITAL Simvastatin (Simvastatin*) 20 MG TABLET 1 Tablet ORAL DAILY Qty = 90 Comments: LIPITOR GIVEN Last Taken: 11/03/16 Time: 5:48 PM Start taking the following new medications: Amoxicillin (Amoxicillin) 500 MG CAPSULE 1 Capsule ORAL THREE TIMES DAILY Qty = 39 No Refills Comments: NOT GIVEN IN HOSPITAL Oxycodone HCl/Acetaminophen (Percocet 5-325 MG Tablet) 5 MG-325 MG TABLET 1 Tablet ORAL EVERY SIX HOURS NEEDED as needed for elbow pain Qty = 10 No Refills Comments: NOT GIVEN IN HOSPITAL Copies To: BECKY ZEPEDA,LULU Nance MD Review Statement Documenting Attending: CARLOS MANUEL GAONA M.D Other Findings: I have reviewed the discharge summary.
== END 2016-11-04 15:37 | DRG 502 ==
LOC: ERH 14:14 → 2NB 21:28 → ERHI 21:28 → ENRESERV 22:04 → 2NB 22:31 → ENPENDDIS 11-04 15:35 → 2NB 11-04 15:37
PROVIDERS: Emergency Medicine; Student in an Organized Health Care Education/Training Program; ADMIT Internal Medicine
PROC: 0M930ZZ Drainage of Right Elbow Bursa and Ligament, Open Approach (ICD-10-PCS; principal; 2016-11-02)
DX: M71.121 Other infective bursitis, right elbow (principal); B95.1 Streptococcus, group B, as the cause of diseases classified elsewhere; I25.10 Atherosclerotic heart disease of native coronary artery without angina pectoris; Z95.5 Presence of coronary angioplasty implant and graft; Z87.891 Personal history of nicotine dependence; M06.9 Rheumatoid arthritis, unspecified; M10.9 Gout, unspecified; E78.5 Hyperlipidemia, unspecified
CPT/HCPCS: 2NBSP; 87075; 36415; 82436; 87040; 87070; 87147; 96374; 96375; J0290; J0696; J1644; J3370; J7040

== ENCOUNTER 2017-08-11 22:32 | Emergency (ER) | payer OTHER ==
[~2017-08-11 22:32] MED LIST changes: +ALLOPURINOL300 M1 PO; +AMITRIPTYLINE H25 M2 PO; +AMOXICILLIN500 M2 PO; +ASPIRIN EC81 M1 PO; +CEPHALEXIN500 M3 PO; +DICLOFENAC SODI75 M2 PO; +HYDROXYCHLOROQ200 M2 PO; +OMEPRAZOLE20 M2 PO; +PERCOCET 5-3251 EACH PO; +SIMVASTATIN20 M2 PO; +TRAMADOL HCL50 M1 PO; +VIAGRA100 M1 PO
[2017-08-11 22:36] VITALS: BP 134/88
--- NOTE | 2017-08-11 22:43 | ED GI/GU/ABDOMINAL COMPLAINT ---
History of Present Illness General Chief Complaint: Male Genitourinary Problems Stated Complaint: SWOLLEN TESTICLES Source: patient Exam Limitations: no limitations Vital Signs & Intake/Output Vital Signs & Intake/Output Vital Signs Date Time Temp Pulse Resp B/P B/P Pulse O2 O2 Flow FiO2 Mean Ox Delivery Rate 08/11 2236 98.7 109 22 134/88 99 ED Intake and Output 08/12 0000 08/11 1200 Intake Total 0 Output Total Balance 0 Intake, Oral 0 Patient 185 lb Weight Allergies Coded Allergies: NO KNOWN ALLERGIES (10/17/13) Reconcile Medications Allopurinol 300 MG TABLET 1 TAB PO DAILY GOUT (Reported) Amitriptyline HCl 25 MG TABLET 1 TAB PO QPM YUSUF (Reported) Amoxicillin 500 MG CAPSULE 1 CAP PO TID right elbow infection(bursa) Aspirin (Ecotrin*) 81 MG TABLET.DR 1 TAB PO DAILY HEART/BLOOD (Reported) Diclofenac Sodium 75 MG TABLET.DR 1 TAB PO BID INFLAMMATION (Reported) Hydroxychloroquine Sulfate 200 MG TABLET 1 TAB PO DAILY RA (Reported) Oxycodone HCl/Acetaminophen (Percocet 5-325 MG Tablet) 5 MG-325 MG TABLET 1 TAB PO Q6P PRN elbow pain Sildenafil Citrate (Viagra) 100 MG TABLET 1 TAB PO PRN ED (Reported) 1 hour before sexual activity Simvastatin (Simvastatin*) 20 MG TABLET 1 TAB PO DAILY CHOLESTEROL (Reported) Triage Note: PER PT HAD A VASECTOMY ON SUNDAY, BY DR JOSUE AND JOE PENIS AND TESTICLES ARE SWOLLEN AND TESTICLES ARE BLACK PAIN 02/25 NO URINE DIFFICULTY Triage Nurses Notes Reviewed? yes Onset: Gradual Duration: day(s): Timing: recent history Quality/Severity: TESTICULAR PAIN Location: scrotal Activities at Onset: S/P VASECTOMY Modifying Factors: Worsens With: other (TESTICULAR SWELLING). Associated Symptoms: TESTICULAR SWELLING HPI: 57 YO gentleman s/p vasectomy on 08/07/17, presents with scrotal swelling. He shares that "I was fine the first few days and now my scrotum has really swelled up." Past History Travel History Traveled to [place] past 21 day No Medical History Any Pertinent Medical History? 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 No Review of Systems Review of Systems Constitutional: Reports: no symptoms. EENTM: Reports: no symptoms. Respiratory: Reports: no symptoms. Cardiovascular: Reports: no symptoms. GI: Reports: no symptoms. Genitourinary: Reports: no symptoms. Musculoskeletal: Reports: no symptoms. Skin: Reports: no symptoms. Neurological/Psychological: Reports: no symptoms. Hematologic/Endocrine: Reports: no symptoms. Immunologic/Allergic: Reports: no symptoms. All Other Systems: Reviewed and Negative Physical Exam Physical Exam General Appearance: well developed/nourished, mild distress Head: atraumatic, normal appearance Eyes: Bilateral: normal appearance. Ears, Nose, Throat, Mouth: hearing grossly normal Neck: normal inspection Respiratory: normal breath sounds, chest non-tender, no respiratory distress, quiet respiration, lungs clear Cardiovascular: regular rate/rhythm Gastrointestinal: normal bowel sounds, soft, non-tender Back: normal inspection Extremities: normal range of motion Core Measures ACS in differential dx? No Sepsis Present: No Sepsis Focused Exam Completed? No Progress Differential Diagnosis: testicular torsion vs post-op ecchymosis vs other. Plan of Care: see below. Diagnostic Imaging: Viewed by Me: Ultrasound. Discussed w/RAD: Ultrasound. Radiology Impression: PATIENT: ROB JOHNSON PRESENT AGE: 57 PATIENT ACCOUNT NO: [id number] : 58 LOCATION: [facility] ORDERING PHYSICIAN: Colin Nielson MD SERVICE DATE: 08/11/17 EXAM TYPE: US - US-TESTICULAR EXAMINATION: US SCROTUM CLINICAL INFORMATION: Postoperative ecchymosis and pain. Question torsion. COMPARISON: None TECHNIQUE: A sonogram of the scrotum was performed assessing zapien-scale appearance and color Doppler flow. Spectral analysis and Doppler interrogation was performed. FINDINGS: RIGHT: Right testicle measures 4.2 x 2.7 x 2.6 cm, volume 21 mL. Parenchymal echotexture is normal. No focal testicular parenchymal lesions are visualized. Normal symmetric intratesticular flow is visualized. Right epididymal head is normal in size. No right hydrocele or varicocele is seen. LEFT: Left testicle measures 4.1 x 2.9 x 3.3 cm, volume 27.9 mL. Parenchymal echotexture is normal. No focal testicular parenchymal lesions are visualized. Normal symmetric intratesticular flow is visualized. Left epididymal head is normal in size. There is a 0.3 cm epididymal head cyst. No left hydrocele or varicocele is seen. IMPRESSION: Tiny left epididymal head cyst. Otherwise unremarkable testicular ultrasound. No torsion. DICTATED BY: Balta Shetty MD DATE/TIME DICTATED:08/12/1737 SHOOK SPLICER:MOOKIE DATE/TIME TRANSCRIBED:08/12/1737 CONFIDENTIAL, DO NOT COPY WITHOUT APPROPRIATE AUTHORIZATION. <Electronically signed in Other Vendor System> SIGNED BY: Balta Shetty MD 08/12/17 0043 Initial ED EKG: none Departure Departure Disposition: HOME OR SELF CARE Condition: Stable Clinical Impression Primary Impression: Postoperative ecchymosis Referrals: Washington Stinson MD (PCP/Family) Departure Forms: Customer Survey General Discharge Information Comments u/s shows no torsion. pt with post-op ecchymosis. pt comfortable in ED and will follow up with urologist on sunday.
--- NOTE | 2017-08-12 00:43 | ULTRASOUND REPORT ---
EXAMINATION: US SCROTUM CLINICAL INFORMATION: Postoperative ecchymosis and pain. Question torsion. COMPARISON: None TECHNIQUE: A sonogram of the scrotum was performed assessing zapien-scale appearance and color Doppler flow. Spectral analysis and Doppler interrogation was performed. FINDINGS: RIGHT: Right testicle measures 4.2 x 2.7 x 2.6 cm, volume 21 mL. Parenchymal echotexture is normal. No focal testicular parenchymal lesions are visualized. Normal symmetric intratesticular flow is visualized. Right epididymal head is normal in size. No right hydrocele or varicocele is seen. LEFT: Left testicle measures 4.1 x 2.9 x 3.3 cm, volume 27.9 mL. Parenchymal echotexture is normal. No focal testicular parenchymal lesions are visualized. Normal symmetric intratesticular flow is visualized. Left epididymal head is normal in size. There is a 0.3 cm epididymal head cyst. No left hydrocele or varicocele is seen. IMPRESSION: Tiny left epididymal head cyst. Otherwise unremarkable testicular ultrasound. No torsion.
== END 2017-08-12 00:59 ==
LOC: ERH 22:32
DX: N99.840 Postprocedural hematoma of a genitourinary system organ or structure following a genitourinary system procedure (principal)
CPT/HCPCS: 96372